=== PATIENT | female | born 1980 | race Caucasian/White ===

== ENCOUNTER → 2020-08-09 | Outpatient (CLI) | payer OTHER, MEDICAID, SELFPAY ==
[2020-08-09 11:26] VITALS: BMI 56.7
--- NOTE | 2020-08-10 18:27 | US_ITS ---
STUDY: ULTRASOUND OF THE FEMALE PELVIS - COMPLETE REASON FOR EXAM: Female, 40 years old. AUB SPOTTING SINCE MAY LMP: 05/19/2020 TECHNIQUE: Transabdominal and Transvaginal TECHNICAL QUALITY: Adequate. COMPARISON: None. FINDINGS: The uterus is anteverted and is in a midline position. The uterus measures 9.8 x 6.0 x 5.0 cm. There is a Nabothian cyst of the cervix. The endometrium measures 13 mm in thickness, and is hyperechoic. There is no demonstrated endometrial mass. There is no demonstrated myometrial mass. I.U.D. - The patient does not have an I.U.D. The right ovary is visualized. The right ovary measures 3.8 x 3.2 x 2.5 cm. There are multiple follicles of the right ovary without a dominant cyst. There is no visualized right adnexal mass or complex lesion. There is normal arterial and normal venous vascularity. The left ovary is visualized. The left ovary measures 3.4 x 2.3 x 1.7 cm. There is no left ovarian cyst or ovarian mass. Simple anechoic adnexal cyst measures 3.0 cm. There is normal arterial and normal venous vascularity. There is no fluid in the cul-de-sac. Visualized urinary bladder is unremarkable. US/Pelvic (Non ) IMPRESSION: 1. No endometrial or myometrial masses. No pelvic free fluid. 2. Simple appearing left adnexal cyst. No pelvic free fluid. Electronically Signed: Keo Norman MD ([place]) at 9:22 EDT , Service support ,
--- NOTE | 2020-08-10 18:37 | US_ITS ---
STUDY: ULTRASOUND OF THE FEMALE PELVIS - COMPLETE REASON FOR EXAM: Female, 40 years old. AUB SPOTTING SINCE MAY LMP: 05/19/2020 TECHNIQUE: Transabdominal and Transvaginal TECHNICAL QUALITY: Adequate. COMPARISON: None. FINDINGS: The uterus is anteverted and is in a midline position. The uterus measures 9.8 x 6.0 x 5.0 cm. There is a Nabothian cyst of the cervix. The endometrium measures 13 mm in thickness, and is hyperechoic. There is no demonstrated endometrial mass. There is no demonstrated myometrial mass. I.U.D. - The patient does not have an I.U.D. The right ovary is visualized. The right ovary measures 3.8 x 3.2 x 2.5 cm. There are multiple follicles of the right ovary without a dominant cyst. There is no visualized right adnexal mass or complex lesion. There is normal arterial and normal venous vascularity. The left ovary is visualized. The left ovary measures 3.4 x 2.3 x 1.7 cm. There is no left ovarian cyst or ovarian mass. Simple anechoic adnexal cyst measures 3.0 cm. There is normal arterial and normal venous vascularity. There is no fluid in the cul-de-sac. Visualized urinary bladder is unremarkable. US/Transvaginal Non- IMPRESSION: 1. No endometrial or myometrial masses. No pelvic free fluid. 2. Simple appearing left adnexal cyst. No pelvic free fluid. Electronically Signed: Keo Norman MD ([place]) at 9:22 EDT , Service support ,
== END | disposition home or self-care (01) ==
PROVIDERS: Referring Provider Obstetrics & Gynecology; Visit Provider Obstetrics & Gynecology
DX: N93.9 Abnormal uterine and vaginal bleeding, unspecified (principal); Z12.4 Encounter for screening for malignant neoplasm of cervix
CPT/HCPCS: 76830; 76856; 87624; 88175; G0145

== ENCOUNTER → 2020-09-09 | Outpatient (CLI) | payer OTHER, MEDICAID, SELFPAY ==
--- NOTE | 2020-09-09 | EMB_PTH ---
PATIENT: GARRETT LEMOS LOC: [facility] U#:[id number] AGE/SX: 40/F ROOM: RE09/09/[address]: Dr. Carol Genao MD : 1980 BED: DIS: 09/09/2020 SPEC #: [id number] RECD: 09/09/20 12:15 STATUS: M[place] MUNIRA #: [id number] SIVAKUMAR: 09/09/20 00:[address]: Carol Genao DEPT: SURGICAL PATHOLOGY RECD BY: Jasmin Kay ENTERED: 09/09/20 13:44 SP TYPE: ENDOM BX/C WIN DR: Micheline [facility] Tissues: Endometrium, NOS Procedures: Surgery Specimen Level IV HEADER OPERATION: Endometrial biopsy PRE-OP DIAGNOSIS: Abnormal uterine bleeding TISSUE SUBMITTED: Endometrial lining MICROSCOPIC DIAGNOSIS Endometrial biopsy: Proliferative endometrium. EVELIN:randall 09/13/20 MICROSCOPIC DESCRIPTION Slides are reviewed. GROSS DESCRIPTION Received is one container labeled with the patient's name and not further designated. The specimen consists of multiple fragments of pink hemorrhagic soft tissue that in aggregate measure 3 x 2.5 x 0.3 cm. The specimen is totally submitted in one cassette. / SJ:randall 09/10/20 TC:4 CPT: 26918
[2020-09-09 11:06] VITALS: BMI 56.6
== END | disposition home or self-care (01) ==
LOC: LABSPEC 12:22
PROVIDERS: Visit Provider Obstetrics & Gynecology
DX: N93.9 Abnormal uterine and vaginal bleeding, unspecified (principal)
CPT/HCPCS: 88305

== ENCOUNTER 2020-10-05 11:12 | Day surgery (SDC) | payer OTHER, MEDICAID, SELFPAY ==
[2020-08-27 11:42] VITALS: BMI 56.5
[2020-09-09 11:06] VITALS: BMI 56.6
--- NOTE | 2020-09-29 10:56 | EKG12_ITS ---
Test Reason : PRE OP Blood Pressure : / mmHG Vent. Rate : 070 BPM Atrial Rate : 070 BPM P-R Int : 154 ms QRS Dur : 088 ms QT Int : 416 ms P-R-T Axes : 037 063 060 degrees QTc Int : 449 ms Normal sinus rhythm Normal ECG Confirmed by TYREL MONTANA, ABRAHAM ([id number]), newspaper photo editor GM LUCERO ([id number]) on 10/01/2020 11:24:54 AM Referred By: Carol Genao Confirmed By:ABRAHAM SARAH MD
[2020-09-29 11:51] LABS: Hematocrit 42.7 % (37-47); Hemoglobin 13.1 g/dL (12.0-15.0); Mean Corp Hgb Conc 30.7 g/dL (32-36); Mean Corpuscular Hgb 27.1 pg (27.0-32.0); Mean Corpuscular Volume 88.2 fL (81-99); Mean Platelet Vol. 9.9 fl (6.2-12.0); Platelet Count 331 K/mm3 (150-450); RBC Distribution Width CV 15.3 % (11.6-14.6); RBC Distribution Width SD 49.4 fl (35.1-43.9); Red Blood Count 4.84 M/mm3 (4.2-5.4); White Blood Count 12.3 K/mm3 (4.4-11.0)
[2020-09-29 12:09] LABS: Magnesium 2.3 mg/dL (1.6-2.6)
[2020-10-05] VITALS (10 sets, daily range): BP systolic 120–146; BP diastolic 65–82; PULSE 68–78; RESP 16–20; TEMP 36.1–36.5; O2SAT 92–97; BMI 57.4
[2020-10-05] MEDS: Scopolamine 1mg/72hr Patch 1 PATCH TD (07:00)
[2020-10-05 11:39] LABS: Internal QC Validated? YES +Cl - CLEAR BKGD
[2020-10-05 11:42] LABS: Pregnancy, Urine Negative Negative
--- NOTE | 2020-10-05 11:48 | PCM.HPOB.BLA ---
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 Is patient in pain?: No Allergies Penicillins Adverse Reaction (Unknown, Verified 09/09/20 11:07) unknown Medications bupropion HCl 150 mg tablet,12 hr sustained-release 150 mg PO DAILY 08/09/20 [History Confirmed 09/09/20] ergocalciferol (vitamin D2) 1,250 mcg (50,000 unit) capsule 1,250 mcg PO QWEEK 08/09/20 [History Confirmed 09/09/20] metformin 500 mg tablet 500 mg PO DAILY 08/09/20 [History Confirmed 09/09/20] norethindrone (contraceptive) 0.35 mg tablet 0.35 mg PO DAILY #28 tab 08/09/20 [Rx Confirmed 09/09/20] polysaccharide iron complex 150 mg iron capsule 150 mg PO DAILY 08/09/20 [History Confirmed 09/09/20] Post menopausal: No Patient : No : No PFSH PFSH Medical History Depression (Acute) Endometriosis (Acute) Iron deficiency anemia (Acute) Hypothyroid (Acute) PCOS (polycystic ovarian syndrome) (Chronic) Surgical History S/P dilation and curettage (Resolved) Family History Grandmother Diabetes Grandfather Diabetes Aunt Diabetes Cervical cancer Uncle Diabetes Other Heart palpitations Social History (Updated 09/09/20 @ 13:[address] 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 Date Name GA/Weeks Outcome Route Bth Weight Infant Gen Labor Lgth Anesthesia Del [facility] Provider FOB Unknown Víctor Unknown [place] HPI EMB : Details: GARRETT LEMOS is a 40 year old who presents for EMB and pre-op visit for TVH, BS, poss BSO, cystoscopy. Denies complaints today. ROS Const Constitutional: Reports system reviewed and no additional complaints, except as docu Eyes Eyes: Reports system reviewed and no additional complaints, except as docu ENT ENT: Reports system reviewed and no additional complaints, except as docu Cardio Card: Reports system reviewed and no additional complaints, except as docu Resp Resp: Reports system reviewed and no additional complaints, except as docu GI GI: Reports system reviewed and no additional complaints, except as docu : Reports system reviewed and no additional complaints, except as docu Musc Musc: Reports system reviewed and no additional complaints, except as docu Skin Skin/Breast: Reports system reviewed and no additional complaints, except as docu Neuro Neuro: Reports system reviewed and no additional complaints, except as docu Psych Psych: Reports system reviewed and no additional complaints, except as docu Exam Const General: cooperative, healthy appearing, comfortable, no acute distress, well developed, well groomed Nutritional Appearance: average body habitus, well nourished Orientation: alert, awake, oriented x3 HENMT Head: normal to inspection, normocephalic, atraumatic Eyes Pupils: PERRL, accommodation normal EOM: EOM intact bilaterally Resp Effort & Inspection: normal respiratory effort, able to speak in complete sentences, symmetric chest movement Cardio Rate: regular rate GI Inspection: normal to inspection, non-distended Palpation: soft, no guarding, no masses, not rigid, nontender General: bladder normal to palpation External Female Exam: normal external appearance, normal appearance of the urethra, no erythema, no tenderness externally, no lesions, No lesion of urethra Urethra: normal appearance of the urethra, no lesions Speculum Exam - Vagina: normal appearance of the vagina, normal vaginal discharge, normal vaginal discharge, not erythematous, no lacerations, no lesions, No vaginal bleeding, no masses, no swelling, nontender Speculum Exam - Cervix: normal appearance of the cervix, no cervical discharge, no lesions, no masses, nontender Bimanual Exam- Vagina & Uterus: bladder normal to palpation, No cervical tenderness OB/External & Speculum: No vaginal bleeding Speculum Exam: no vaginal bleeding Neuro General: alert, awake, oriented x3, CN's II-XI intact bilaterally Cranial Nerves: PERRL, accommodation normal, EOM intact bilaterally Cognition: normal cognition Speech: speech normal Gait: normal gait Psych Appearance: grossly normal, well kempt Mental Status: mental status grossly normal Mood: congruent mood Affect: normal affect Speech and Movement: speech and movement normal Attitude: cooperative Thought Process: normal Thought Content: normal Judgment: judgment good Results POC Urine Office , Urine Negative Last Edit by Pricilla Burch on 09/09/20 11:14 Assessment & Plan 1. Abnormal uterine bleeding (AUB) N93.9 Plan Patient presents for EMB and pre-op visit for TVH, BS, cystoscopy. EMB negative Received medical clearance by PCP All questions answered regarding procedure. Patient still agrees to proceed with above procedure. Reviewed that we will attempt to move tubes, but there is always a chance of having to leave these in place if they were not easily accessible. Also reviewed that if ovaries appeared extremely abnormal, could require removal. Patient plans to go home following procedure. Consent was signed. UPDATE- I have seen the patient and performed any clinically relevant updates to the history and physical exam. Carol Genao MD
--- NOTE | 2020-10-05 11:51 | OP.PCM_ITS ---
Problem List (1) Abnormal uterine bleeding (AUB) Status: Acute Report of Operation Date of Procedure: 10/05/20 Pre-Operative Diagnosis: AUB Post-Operative Diagnosis: Same Surgery/Procedure Performed:: Total vaginal hysterectomy, cystostopy Description of Surgical Findings:: Normal uterus, cervix, tubes, and ovaries. clamp forklift operator: Radha Jacobo Type of Anesthesia:: General Special Medications: Ancef 3g Specimen's removed: Uterus, cervix Estimated Blood Loss (mL): 150 Description of Procedure: Patient was taken to the operating room and was placed under general anesthesia was prepped and draped in normal sterile fashion in the dorsal lithotomy position. Preoperative antibiotics and SCDs and Wynn catheter was placed inside the bladder. Weighted speculum was placed in the vagina and the anterior and posterior lip of the cervix was grasped with 2 Lorenzo clamps and circumferentially injected with dilute vasopressin. A circumferential incision was made with a scalpel and the posterior cul-de-sac was entered into sharply an d a longneck speculum was placed. The anterior cul-de-sac was also dissected down and entered into sharply and the uterosacral ligaments were clamped cut and suture ligated bilaterally followed by the cardinal ligaments which were Clamped cut and suture ligated bilaterally with 0 Vicryl. The uterus serially descended and progressive bites were taken bilaterally up to the level of the utero-ovari an ligament bilaterally which was clamped transected and double ligated with 0 Vicryl suture and 0 Vicryl free tie. Bilateral fallopian tubes and ovaries were well visualized and noted to appear normal. The tubes and ovaries were well out of the operative field and the decision was made to leave the fallopian tubes in place. The pelvic side wall was inspected and all pedicles were hemostatic. Pos terior peritoneum and the vagina were closed with [id number] 0 Vicryl pop offs including the posterior and anterior peritoneum in the reapproximation. Excellent hemostasis was noted. The wynn catheter was removed and cystoscopy was performed and vigorous spill was noted from both ureters. The bladder was free of traumatic injury. Wynn catheter was replaced. All instruments removed from the vagina clear urine was noted at the end of the procedure and counts were correct. - Complications None - Admit VTE Documentation VTE Present on Admission: No VTE Mechan Device Prophylaxis: SCD's VTE Pharm Prophylaxis ordered?: No Multi Select Codes - Urinary/Genital Urinary/Genital CPT Codes: 74501 TVH <250 gr uterus
[2020-10-05] MEDS: Gabapentin 600 MG Tablet PO (11:56)
[2020-10-05] MEDS: Celecoxib 200 MG Capsule 400 MG PO (11:56)
[2020-10-05] MEDS: Acetaminophen 500 MG Tablet 1000 MG PO (11:56)
[2020-10-05] MEDS: Phenazopyridine 95 MG Tablet 190 MG PO (11:56)
[2020-10-05] MEDS: Lactated Ringers 1,000 ML 40 ML IV (11:57)
--- NOTE | 2020-10-05 12:02 | DCINST_ITS ---
Discharge Diet: No Restrictions Discharge Activity: Return to Normal Activity, May Not Drive - while taking narcotic pain medications., May Shower May resume sexual activity in: 6-8 weeks Call your doctor if your incision/area has: Continuous Slow Oozing, Sudden Increased Bleeding, Increased Pain/ Swelling, Increased Redness, Foul Smelling Discharge Call your doctor if you observe: Fever of 101 or Higher, Inability to urinate, Inability to have a bowel movement, Using more than one pad per hour Allergies/Adverse Reactions: Allergies bee venom protein (honey bee) Allergy (Verified 10/05/20 11:07) Swelling Penicillins Adverse Reaction (Unknown, Verified 10/05/20 11:07) unknown Medications to take at Discharge bupropion HCl 150 mg tablet,12 hr sustained-release 150 mg PO BID 08/09/20 ergocalciferol (vitamin D2) 1,250 mcg (50,000 unit) capsule 1,250 mcg PO QWEEK 08/09/20 metformin 500 mg tablet 500 mg PO DAILY 08/09/20 norethindrone (contraceptive) 0.35 mg tablet 0.35 mg PO DAILY #28 tab 08/09/20 polysaccharide iron complex 150 mg iron capsule 150 mg PO DAILY 08/09/20 Ascorbic Acid [Vitamin C] 500 mg PO DAILY 09/27/20 Escitalopram Oxalate [Lexapro] 10 mg PO DAILY 09/27/20 Primary Care Physician: [facility] Micheline Lopez [Primary Care Provider] - Test Results: Test results from this visit will be discussed in further detail at your follow- up appointment, if applicable.
[2020-10-05 12:16] LABS: Bedside Glucose 108 mg/dL (70-110)
--- NOTE | 2020-10-05 13:10 | HYST_PTH ---
PATIENT: GARRETT LEMOS [place] [facility] [id number] AGE/SX: 40/F ROOM: RE10/05/[address]: Dr. Carol Genao MD : 1980 BED: DIS: 10/05/2020 SPEC #: [id number] RECD: 10/06/20 07:38 STATUS: MADISON REAna #: [id number] SIVAKUMAR: 10/05/20 13:[address]: Carol Genao DEPT: SURGICAL PATHOLOGY RECD BY: Jasmin Kay ENTERED: 10/06/20 10:17 SP TYPE: HYSTERECT OTHR DR: Dr. Chaparro Garner MD [facility] Tissues: Uterus, NOS Procedures: Surgery Specimen Level V HEADER OPERATION: ERAS, vaginal hysterectomy, cysto PRE-OP DIAGNOSIS: Abnormal uterine bleeding TISSUE SUBMITTED: Uterus and cervix MICROSCOPIC DIAGNOSIS Uterus and cervix, vaginal hysterectomy: Cervix - chronic inflammation and squamous metaplasia. Endometrium - secretory endometrium. Myometrium - no pathologic diagnosis. SJ:randall 10/07/20 MICROSCOPIC DESCRIPTION Slides are reviewed. GROSS DESCRIPTION Received in fixative is one container labeled with the patient's name and designated uterus. The specimen consists of a uterus and cervix in two fragments measuring in aggregate 11 x 10 x 3.5 cm and weighing 123 gm. The ectocervix is unremarkable. The endocervical canal measures 3.5 cm in length and is grossly unremarkable. The elongated endometrial cavity measures 5 x 2.2 cm. The reddish-pineda endometrium measures up to 0.2 cm in thickness. The myometrium measures 2.6 cm in average thickness and is free of mass lesions. Inspector sections are submitted in six cassettes as follows: 1 - anterior cervix, 2 - posterior cervix, 3 & 4 - anterior uterine wall, 5 & 6 - posterior uterine wall. / AM:randall 10/06/20 TC:5 CPT: 80483
[2020-10-05] MEDS: Vasopressin 20 UNITS/ML Vial (13:33)
[2020-10-05] MEDS: Lactated Ringers 1,000 ML 70 ML IV (16:01)
[2020-10-05] MEDS: HYDROcodone Bitartrate/Apap 5/325 Tablet PO (17:47)
[2020-10-05 19:59] LABS: Absolute Lymphocyte Count 0.97 X10^3/uL (0.83-4.51); Absolute Neutrophil Count 16.5 X10^3/uL (2.0-7.7); Basophil# 0.03 X10^3/uL; Basophil% 0.2 % (0-1); Eosinophil# 0.01 X10^3/uL; Eosinophils% 0.1 % (0-5); Hematocrit 42.4 % (37-47); Hemoglobin 13.3 g/dL (12.0-15.0); Lymphocyte # 0.97 X10^3/ul (4.0); Lymphocyte % 5.5 % (19-41); Mean Corp Hgb Conc 31.4 g/dL (32-36); Mean Corpuscular Hgb 27.8 pg (27.0-32.0); Mean Corpuscular Volume 88.7 fL (81-99); Monocyte# 0.18 X10^3/uL; NRBC Flagged by Analyzer 0 % (0-5); Neutrophil # 16.47 X10^3/uL (2.7-7.7); Neutrophil % 92.6 % (47-70); Platelet Count 312 K/mm3 (150-450); RBC Distribution Width CV 14.7 % (11.6-14.6); RBC Distribution Width SD 48.1 fl (35.1-43.9); Red Blood Count 4.78 M/mm3 (4.2-5.4); White Blood Count 17.8 K/mm3 (4.4-11.0)
== END 2020-10-05 20:20 | disposition home or self-care (01) ==
LOC: SDC 11:13 → AC 11:14
PROVIDERS: Anesthesiology; Referring Provider Obstetrics & Gynecology; Visit Provider Obstetrics & Gynecology
PROC: (CPT 58260; principal; 2020-10-05 12:50)
DX: N87.9 Dysplasia of cervix uteri, unspecified (principal); N72 Inflammatory disease of cervix uteri; D50.9 Iron deficiency anemia, unspecified; F17.200 Nicotine dependence, unspecified, uncomplicated; F32.9 Major depressive disorder, single episode, unspecified; E66.01 Morbid (severe) obesity due to excess calories; Z68.43 Body mass index [BMI] 50.0-59.9, adult; Z20.828 Contact with and (suspected) exposure to other viral communicable diseases; Z79.899 Other long term (current) drug therapy
CPT/HCPCS: 00944; 52000; 58260; 36415; 81025; 82962; 83735; 85025; 85027; 86850; 86900; 86901; 87426; 88307; 93005; C9803; J7120; J2405

== ENCOUNTER → 2020-10-20 | Outpatient (CLI) | payer OTHER, MEDICAID, SELFPAY ==
[2020-10-20 11:57] VITALS: BMI 56.6
== END | disposition home or self-care (01) ==
LOC: LABSPEC 16:42
PROVIDERS: Referring Provider Obstetrics & Gynecology; Visit Provider Obstetrics & Gynecology
DX: N94.9 Unspecified condition associated with female genital organs and menstrual cycle (principal)
CPT/HCPCS: 87070; 87205

== ENCOUNTER → 2020-11-16 | Outpatient (CLI) | payer OTHER, MEDICAID, SELFPAY ==
[2020-11-16 09:41] VITALS: BMI 57.9
== END | disposition home or self-care (01) ==
LOC: LABSPEC 15:10
PROVIDERS: Referring Provider Nurse Practitioner Women's Health; Visit Provider Nurse Practitioner Women's Health
DX: R30.0 Dysuria (principal)
CPT/HCPCS: 87086; 87088

== ENCOUNTER 2021-03-01 09:51 | Emergency (ER) | payer OTHER, MEDICAID, SELFPAY ==
[2020-11-16 09:41] VITALS: BMI 57.9
[2021-03-01 09:52] VITALS: BP 142/109; PULSE 91; RESP 15; TEMP 36.6; O2SAT 97; BMI 59.9
--- NOTE | 2021-03-01 10:14 | CT_ITS ---
STUDY: CT BRAIN WITHOUT CONTRAST REASON FOR EXAM: Female, 40 years old. Headache. Syncope. RADIATION DOSAGE (If Supplied By Facility): CTDIvol = ( 44.99 ) mGy, DLP = ( 779.24 ) mGycm TECHNIQUE: Transaxial CT imaging of the brain was performed without administration of intravenous contrast material. Individualized dose optimization techniques were used for this CT. COMPARISON: No relevant priors. FINDINGS: Normal soft tissue structures. Normal calvarium. Normal size ventricles and extra-axial spaces for the patient''s age. Normal white matter tracts of the cerebral hemispheres. Normal basal ganglia and thalami. Normal brainstem. Normal cerebellum. There is no intracranial hemorrhage. There are no findings of an acute ischemic infarction. Mild degree of mucosal thickening along the posterior aspect of the left maxillary sinus. CT/Brain/Head without Contrast IMPRESSION: Normal unenhanced CT scan of the brain. Electronically Signed: Zach Grullon MD at 11:21 EDT , Service support ,
--- NOTE | 2021-03-01 10:15 | EKG12_ITS ---
Test Reason : SYC Blood Pressure : / mmHG Vent. Rate : 080 BPM Atrial Rate : 080 BPM P-R Int : 160 ms QRS Dur : 090 ms QT Int : 412 ms P-R-T Axes : 036 060 067 degrees QTc Int : 475 ms Normal sinus rhythm Normal ECG Confirmed by ARISTIDES MONTANA, GIBRAN ([id number]), perfect binder operator GM LUCERO ([id number]) on 03/03/2021 9:09:36 AM Referred By: MR Confirmed By:GIBRAN IRVING MD
--- NOTE | 2021-03-01 10:15 | RAD_ITS ---
STUDY: X-RAY CHEST REASON FOR EXAM: Female, 40 years old. Syncope TECHNIQUE: PA and lateral views of the chest. COMPARISON: None. FINDINGS: EKG electrodes are seen. The lungs are clear and expanded. There is no demonstrated pleural abnormality. Normal size heart. Normal mediastinum and janel. Normal visualized pulmonary arteries. Normal visualized aortic arch and descending thoracic aorta. There are mild degenerative changes of the visualized thoracic spine. Normal visualized ribs, clavicles, and shoulders. There is no demonstrated abnormality of the visualized soft tissue structures of the upper abdomen. RAD/Chest PA and Lateral IMPRESSION: Normal x-ray examination of the chest. Electronically Signed: Zach Grullon MD at 11:21 EDT , Service support ,
[2021-03-01 10:27] VITALS: BP 156/81; PULSE 78; RESP 18; O2SAT 96
--- NOTE | 2021-03-01 10:34 | EDS_ITS ---
HPI History of Present Illness Chief Complaint: Syncope Narrative Narrative: Patient presenting for evaluation secondary to syncope. Patient states that on Sunday, 4 days ago she suffered a syncopal episode. She was standing in line, had a coughing episode and then passed out. Friend who is present with her states that she was unconscious for around 30 to 60 seconds denies that there is any sort of seizure-like activity or loss of bowel or bladder continence. Patient reports that she remembers coughing, and then remembers nothing after that. She denies that she had any preceding chest pain. She denies that there was any shortness of breath. Patient does state that she has had a couple of episodes that were rather unprovoked over the course the last month actually a few when she was simply seated and just driving. She denied that there was any preceding nausea abdominal pain or any other provoking factors. Patient denies any cardiovascular history. She denies any history of DVT or PE, she is a smoker no recent travel or surgery. She denies any recent infectious signs or symptoms. She was concerned because after syncopal event on Sunday she has had a persistent mild headache. This is a generalized headache and its not associated with photophobia photophobia visual changes numbness weakness nausea or vomiting. Review of systems otherwise negative. [facility] Medical History Depression Endometriosis Hypothyroid Iron deficiency anemia PCOS (polycystic ovarian syndrome) Home Medications bupropion HCl 150 mg tablet,12 hr sustained-release 150 mg PO BID 08/09/20 [History Last Taken Unknown] ergocalciferol (vitamin D2) 1,250 mcg (50,000 unit) capsule 1,250 mcg PO QWEEK 08/09/20 [History Last Taken Unknown] metformin 500 mg tablet 500 mg PO DAILY 08/09/20 [History Last Taken Unknown] polysaccharide iron complex 150 mg iron capsule 150 mg PO DAILY 08/09/20 [History Last Taken Unknown] ascorbic acid (vitamin C) 500 mg PO DAILY 09/27/20 [History Last Taken Unknown] escitalopram oxalate 10 mg PO DAILY 09/27/20 [History Last Taken Unknown] ibuprofen 800 mg PO Q8H PRN PRN #60 tab 10/05/20 [Rx Last Taken Unknown] apixaban [Eliquis] 5 mg PO BID #74 tab 03/01/21 [Rx Last Taken Unknown] Allergy/AdvReac Type Severity Reaction Status Date / Time bee venom protein (honey bee) Allergy Swelling Verified 11/16/20 09:43 Penicillins AdvReac Unknown unknown Verified 11/16/20 09:43 Family History Grandmother Diabetes Grandfather Diabetes Aunt Diabetes Cervical cancer Uncle Diabetes Other Heart palpitations Surgical History H/O total vaginal hysterectomy S/P dilation and curettage Social History Smoking Status: Current every day smoker alcohol intake: never substance use type: does not use what type of physical activity do you participate in: walking frequency: 3-4 times per week seatbelt use: always do you feel safe at home: Yes additional social history: - Jose Patient does instacart ROS ROS ED Constitutional Constitutional ED: Reports systems reviewed and no addt'l complaints, except as documented Eyes Eyes: Reports systems reviewed and no addt'l complaints, except as documented ENT ENT ED: Reports systems reviewed and no addt'l complaints, except as documented Cardiovascular Cardiovascular: Reports syncope; Denies chest pain or dyspnea Respiratory/Chest Respiratory/Chest: Reports systems reviewed and no addt'l complaints, except as documented Gastrointestinal Gastrointestinal: Reports systems reviewed and no addt'l complaints, except as documented Genitourinary Genitourinary ED: Reports systems reviewed and no addt'l complaints, except as documented Musculoskeletal Musculoskeletal: Reports systems reviewed and no addt'l complaints, except as documented Integumentary Reports systems reviewed and no addt'l complaints, except as documented Neurologic Neurologic: Reports headache(s) Psychiatric Psychiatric: Reports systems reviewed and no addt'l complaints, except as documented Endocrine Endocrinology: Reports systems reviewed and no addt'l complaints, except as documented Hematologic/Lymphatic Hematologic/Lymphatic: Reports systems reviewed and no addt'l complaints, except as documented Allergic/Immunologic Allergic/Immunologic ED: Reports systems reviewed and no addt'l complaints, except as documented EXAM Physical Exam Const Vital Signs: 03/01/21 09:52 03/01/21 10:11 03/01/21 10:27 Temperature 97.8 F Temperature Source Temporal Pulse Rate 91 78 Respiratory Rate 15 18 Respiratory Effort Normal Respiratory Pattern Normal Blood Pressure 142/109 H 156/81 H Blood Pressure Mean 120 106 Pulse Ox 97 96 Oxygen Delivery Method Room Air Room Air 03/01/21 12:03 Temperature Temperature Source Pulse Rate 83 Respiratory Rate 14 Respiratory Effort Respiratory Pattern Blood Pressure 146/71 H Blood Pressure Mean 96 Pulse Ox 96 Oxygen Delivery Method Room Air Positive well nourished, well developed and no apparent distress General Appearance ED: well developed HEENT Reports normocephalic and head/scalp atraumatic Eyes PERRL and EOMs intact bilaterally Eyes Narrative: No evidence of nystagmus Neck full ROM and no JVD Chest Wall inspection of chest normal and palpation of chest normal Resp normal respiratory effort, normal air movement and clear to auscultation [place] aterally Cardio regular rate, regular rhythm, S1 normal heart sound, S2 normal heart sound and no murmurs Peripheral Pulses: pulses 2+ throughout GI normal to inspection, nondistended, normoactive bowel sounds, soft to palpation, non-tender and non-distended Back/Spine normal ROM Extremity normal to inspection, full ROM, no calf tenderness and no pedal edema Neuro oriented x3, CN's II-XII intact bilaterally, moves all extremities, no focal motor deficits and no sensory deficits noted Psych mental status grossly normal Skin no rashes or lesions noted MDM MDM MDM Narrative Medical decision making narrative: Patient presented for evaluation secondary to syncopal episodes. EKG was found to be unremarkable. CBC unremarkable, chemistry and troponin found to be within normal limits. D-dimer was obtained on this patient and was found to be elevated at 0.6. Chest x-ray by my personal review was negative, CT imaging of the brain was found to be negative. CT angiogram of the chest however did demonstrate the patient to have pulmonary emboli in the left upper lung lobe. Patient's P JOHNNY score is in the very low risk category making it appropriate for the patient to be managed as an outpatient with [facility]. I discussed the patient risks and benefits of anticoagulation therapy, she did verbally consent to this. I educated her on signs and symptoms for which to return to the emergency department. I stressed the importance of outpatient follow-up with primary care. Patient voiced understanding of this. Patient was discharged in stable condition. Lab Data Labs: Laboratory Results - last 24 hr 03/01/21 03/01/21 03/01/21 10:30 10:30 10:30 WBC 8.4 RBC 5.01 Hgb 14.0 Hct 44.3 MCV 88.4 MCH 27.9 MCHC 31.6 L RDW Std Deviation 44.4 H RDW Coeff of Demarcus 13.7 Plt Count 285 MPV 9.7 Immature Gran % (Auto) 0.400 Neut % (Auto) 64.9 Lymph % (Auto) 21.0 Boyd % (Auto) 10.0 Eos % (Auto) 3.1 Baso % (Auto) 0.6 Absolute Neuts (auto) 5.5 Absolute Lymphs (auto) 1.77 Nucleated RBC % 0 D-Dimer Quant (PE/DVT) 0.60 H* Sodium 139 Potassium 3.5 Chloride 103 Carbon Dioxide 30.0 Anion Gap 6 BUN 13 Creatinine 0.86 Estim Creat Clear Calc 78.25 Est GFR (MDRD) Af Amer 94 Est GFR (MDRD) Non-Af 78 BUN/Creatinine Ratio 15.1 Glucose 137 H Calcium 8.5 Troponin I < 0.015 Radiography Chest X-Ray - ED: 2 View, Read by ED Physician and Normal Diagnostic Testing: Radiology Impression Brain CT 03/01/21 10:14 IMPRESSION: Normal unenhanced CT scan of the brain. Electronically Signed: Zach Grullon MD at 11:21 EDT , Service support , Chest X-Ray 03/01/21 10:15 IMPRESSION: Normal x-ray examination of the chest. Electronically Signed: Zach Grullon MD at 11:21 EDT , Service support , Chest CTA 03/01/21 11:08 IMPRESSION: Multiple pulmonary emboli in the branches of the upper lobe pulmonary arteries. Gallstones. Electronically Signed: Zach Grullon MD at 11:49 EDT , Service support , EKG Initial EKG: Attestation: I personally reviewed and interpreted this EKG as follows: (Sinus rhythm of [address] segments, normal T waves, normal MS and QTc intervals no evidence of WPW or Brugada morphology, no evidence of acute ischemia or arrhythmia.) Discharge Plan Triage Chief Complaint: Syncope ED Provider: Octavio Saravia Dx/Rx/DC Orders Clinical Impression: Pulmonary embolism Instructions: Pulmonary Embolism Prescriptions: New Eliquis 5 mg tablet 5 mg PO BID Qty: 74 RF: 0 No Action bupropion HCl [Wellbutrin SR] 150 mg tablet sustained-release 12 hr 150 mg PO BID RF: 0 polysaccharide iron complex [Ferrex 150] 150 mg iron capsule 150 mg PO DAILY RF: 0 metformin 500 mg tablet 500 mg PO DAILY RF: 0 ergocalciferol (vitamin D2) [Vitamin D2] 1,250 mcg (50,000 unit) capsule 1,250 mcg PO QWEEK RF: 0 escitalopram oxalate 10 MG tablet 10 mg PO DAILY RF: 0 ascorbic acid (vitamin C) 500 MG capsule 500 mg PO DAILY RF: 0 ibuprofen 800 MG tablet 800 mg PO Q8H PRN PRN (Reason: Pain Score 1-5) Qty: 60 RF: 1 Primary Care Provider: [facility] Micheline Lopez Referrals: [facility] Micheline Lopez [Primary Care Provider] - 3-5 Days Disposition Patient Disposition: Home, self care
[2021-03-01 10:41] LABS: Absolute Lymphocyte Count 1.77 X10^3/uL (0.83-4.51); Absolute Neutrophil Count 5.5 X10^3/uL (2.0-7.7); Basophil# 0.05 X10^3/uL; Basophil% 0.6 % (0-1); Eosinophil# 0.26 X10^3/uL; Eosinophils% 3.1 % (0-5); Hematocrit 44.3 % (37-47); Lymphocyte # 1.77 X10^3/ul (0.83-4.51); Mean Corp Hgb Conc 31.6 g/dL (32-36); Mean Corpuscular Hgb 27.9 pg (27.0-32.0); Mean Corpuscular Volume 88.4 fL (81-99); Mean Platelet Vol. 9.7 fl (6.2-12.0); Monocyte# 0.84 X10^3/uL; NRBC Flagged by Analyzer 0 % (0-5); Neutrophil # 5.47 X10^3/uL (2.7-7.7); Neutrophil % 64.9 % (47-70); Platelet Count 285 K/mm3 (150-450); RBC Distribution Width CV 13.7 % (11.6-14.6); RBC Distribution Width SD 44.4 fl (35.1-43.9); Red Blood Count 5.01 M/mm3 (4.2-5.4); White Blood Count 8.4 K/mm3 (4.4-11.0)
[2021-03-01 10:56] LABS: Anion Gap 6 (5-15); BUN 13 mg/dL (7-18); BUN/Creat Ratio 15.1 RATIO (10-20); Calcium,Total 8.5 mg/dL (8.5-10.1); Chloride 103 mmol/L (98-107); Creatinine, Serum 0.86 mg/dL (0.55-1.02); EST Glomerular Filtration Rate 78 mL/min (>60); Est Glom Filt Rate - Afr Amer 94 mL/min (>60); Estimated Creatinine Clearance 78.25 ml/min; Glucose 137 mg/dL (74-106); Potassium 3.5 mmol/L (3.5-5.1); Sodium Level 139 mmol/L (136-145)
--- NOTE | 2021-03-01 11:08 | CT_ITS ---
STUDY: CTA CHEST REASON FOR EXAM: Female, 40 years old. Syncope, Elevated D-Dimer RADIATION DOSAGE (If Supplied By Facility): CTDIvol = ( 12.66 ) mGy, DLP = ( 567.16 ) mGycm TECHNIQUE: The examination was performed with the intravenous administration of IV 100mL [id number]-370. Post-processing of the angiographic images was performed, with multiplanar reformation and 3D reconstruction. Individualized dose optimization techniques were used for this CT. COMPARISON: None. FINDINGS: Multiple intraluminal filling defects in branches of the upper lobe pulmonary arteries. Normal thoracic aorta and visualized great vessels. There is no demonstrated aortic dissection. Normal heart and pericardium. Normal mediastinum. Normal hilar regions. Normal visualized trachea and bronchi. The lungs are well expanded. Normal pulmonary parenchyma. Normal pleura. Normal chest wall structures. There are degenerative changes of thoracic spine. Gallstones. CT/CTA Chest W/WO Contrast IMPRESSION: Multiple pulmonary emboli in the branches of the upper lobe pulmonary arteries. Gallstones. Electronically Signed: Zach Grullon MD at 11:49 EDT , Service support ,
[2021-03-01 12:03] VITALS: BP 146/71; PULSE 83; RESP 14; O2SAT 96
[2021-03-01] MEDS: HYDROcodone Bitartrate/Apap 5/325 Tablet PO (12:27)
[2021-03-01 12:29] VITALS: BP 157/82; PULSE 84; RESP 16; O2SAT 97
== END 2021-03-01 12:40 | disposition home or self-care (01) ==
PROVIDERS: Emergency Provider Emergency Medicine
DX: I26.99 Other pulmonary embolism without acute cor pulmonale (principal); F17.200 Nicotine dependence, unspecified, uncomplicated; D50.9 Iron deficiency anemia, unspecified
CPT/HCPCS: 70450; 71046; 71275; 80048; 84484; 85025; 85379; 93005; 99285; Q9967; A4216

== ENCOUNTER → 2021-03-07 08:57 | Outpatient (CLI) | payer OTHER, MEDICAID, SELFPAY ==
[2021-03-01 09:52] VITALS: BMI 59.9
--- NOTE | 2021-03-07 09:00 | US_ITS ---
STUDY: ABDOMINAL ULTRASOUND - RIGHT UPPER QUADRANT REASON FOR VISIT: Female, 40 years old DISEASE OF GALLBLADDER TECHNIQUE: Ultrasound evaluation of the right upper quadrant was performed with real-time and static moe-scale imaging. TECHNICAL QUALITY: Limited. Examination limited due to obesity. COMPARISON: Comparison is made with prior CT scan of the thorax dated 03/01/2021. FINDINGS: Liver: The liver is enlarged and measures 19.6 cm. There is increased echogenicity consistent with fatty infiltration. The bile ducts are within normal limits. There is hepatic color flow. The direction of portal flow is hepatopetal. There is no demonstrated mass lesion. Gallbladder: Normal distended gallbladder. The gallbladder wall measures 2 mm. There is a negative sonographic Whalen''s sign. There is no pericholecystic fluid. There is a solitary echogenic gallstone within the gallbladder. This measures 1.8 cm x 1.9 cm. Common Bile Duct (C.B.D.): The common bile duct measures 2.0 mm. Pancreas: Normal size of the head, body and tail of the pancreas. There is normal echogenicity of the pancreas. There is no demonstrated pancreatic mass or cyst. Right Kidney: Normal size of the right kidney. The right kidney measures 10 cm x 6.3 cm x 4.5 cm. Normal renal cortex. The right cortex measures 1.3 cm. There is no demonstrated renal mass or cyst. There is no right hydronephrosis. US/Abdomen Limited IMPRESSION: Mild hepatomegaly and fatty infiltration of the liver. Solitary gallstone. Electronically Signed: Zach Grullon MD at 11:02 EDT , Service support ,
[2021-03-07 11:14] LABS: Erythrocyte Sedimentation Rate 41 mm/hr (0-30)
[2021-03-07 11:52] LABS: AST(SGOT) 26 U/L (15-37); Alanine Aminotransfer ALT/SGPT 35 U/L (13-56); Alkaline Phosphatase 70 U/L (45-117); Iron 215 ug/dL (50-170); Iron Binding Capacity,Total 335 ug/dL (250-450); PERCENT IRON SATURATION 64.2 % (15.0-55.0); T4 Free Direct 0.87 ng/dL (0.76-1.46); Thyroid Stim Hormone (TSH) 1.56 uIU/mL (0.358-3.74)
[2021-03-07 15:23] LABS: Vitamin B12 286 pg/mL (211-911)
[2021-03-08 10:54] LABS: Thyroid Peroxidase AB < 9 IU/mL (0-34)
[2021-03-09 16:24] LABS: Vitamin D 1,25-Dihydroxy 58.9 pg/mL (19.9-79.3)
== END ==
LOC: US 09:54 → LAB 09:54
PROVIDERS: Referring Provider Nurse Practitioner Adult Health; Visit Provider Nurse Practitioner Adult Health
DX: K82.9 Disease of gallbladder, unspecified (principal); G44.89 Other headache syndrome; E03.9 Hypothyroidism, unspecified
CPT/HCPCS: 36415; 76705; 82607; 82652; 83540; 83550; 84075; 84439; 84443; 84450; 84460; 85652; 86376

== ENCOUNTER 2022-02-15 16:40 | Emergency (ER) | payer OTHER, MEDICAID, SELFPAY ==
[2022-02-15 16:41] VITALS: BP 104/80; PULSE 94; RESP 14; TEMP 36.5; O2SAT 99; BMI 57.2
--- NOTE | 2022-02-15 17:24 | CT_ITS ---
STUDY: CT ABDOMEN AND PELVIS WITHOUT CONTRAST REASON FOR EXAM: Female, 41 years old. Abd pain RADIATION DOSAGE (If Supplied By Facility): CTDIvol = ( 22.71 ) mGy, DLP = ( 1223.80 ) mGycm TECHNIQUE: Transaxial images were obtained from the dome of the diaphragm to the symphysis pubis without oral contrast, and without intravenous contrast. Sagittal and coronal images were reconstructed. Individualized dose optimization techniques were used for this CT. COMPARISON: None. FINDINGS: The visualized lung bases are unremarkable. The visualized portions of the heart are within normal limits. There is hepatomegaly with diffuse hepatic enlargement. There is decreased attenuation of the liver consistent with steatosis. There is a solitary gallstone. There is mild splenomegaly. Normal pancreas. Normal bilateral adrenal glands. Normal right kidney. Normal left kidney. Normal visualized stomach. Normal small intestine. Normal colon. The appendix is visualized and appears normal. Normal abdominal aorta. Normal inferior vena cava. Normal retroperitoneum. Normal urinary bladder. There is absence of the uterus consistent with a prior hysterectomy. There is no free fluid in the abdomen or pelvis. Normal abdominal wall. There is degenerative change of the spine. CT/Abdomen/Pelvis without Cont IMPRESSION: Gallstone. Hepatosplenomegaly. Fatty infiltration of the liver. No biliary dilatation. Electronically Signed: Parish Gee MD at 18:39 EDT Reading Location ID and State: [facility] / [place] , Service support ,
[2022-02-15 17:54] LABS: Mucous, Urine 0 SEEN /hpf (<or=2+)
[2022-02-15 17:55] LABS: Absolute Lymphocyte Count 1.96 X10^3/uL (0.83-4.51); Absolute Neutrophil Count 9.8 X10^3/uL (2.0-7.7); Basophil# 0.04 X10^3/uL; Basophil% 0.3 % (0-1); Eosinophils% 2.3 % (0-5); Hemoglobin 15.8 g/dL (12.0-15.0); Lymphocyte # 1.96 X10^3/ul (0.83-4.51); Lymphocyte % 15.1 % (19-41); Mean Corp Hgb Conc 32.9 g/dL (32-36); Mean Corpuscular Hgb 29.6 pg (27.0-32.0); Mean Corpuscular Volume 90.1 fL (81-99); Mean Platelet Vol. 10.8 fl (6.2-12.0); Monocyte# 0.86 X10^3/uL; Monocyte% 6.6 % (0-10); NRBC Flagged by Analyzer 0 % (0-5); Neutrophil # 9.76 X10^3/uL (2.7-7.7); Neutrophil % 75.1 % (47-70); Platelet Count 276 K/mm3 (150-450); RBC Distribution Width CV 12.4 % (11.6-14.6); RBC Distribution Width SD 40.7 fl (35.1-43.9); Red Blood Count 5.33 M/mm3 (4.2-5.4)
[2022-02-15] MEDS: Ketorolac 30 MG/ML Syringe IV (17:55)
[2022-02-15] MEDS: 0.9% Normal Saline 1,000 ML 150 ML IV (17:55)
[2022-02-15] MEDS: Ondansetron 4 MG/2 ML Vial IV (17:55)
[2022-02-15 18:12] LABS: Color, Urine Yellow (Yellow); Glucose, Dipstick Normal (Normal); Ketone-Dipstick 15 mg/dl (Negative); Leukocyte Esterase-Dipstick 25 /ul (Negative); Nitrite-Dipstick Negative (Negative); Occult Blood-Urine Negative /ul (Negative); Protein-Dipstick 30 mg/dl (Negative); Urine Bilirubin Dipstick Negative (Negative); Urine Clarity Sl. Cloudy (Clear); Urine Urobilinogen 1 mg/dl (Normal)
[2022-02-15 18:14] LABS: AST(SGOT) 28 U/L (15-37); Alanine Aminotransfer ALT/SGPT 48 U/L (13-56); Albumin, Serum 3.2 g/dL (3.2-5.0); Alkaline Phosphatase 74 U/L (45-117); Anion Gap 6 (5-15); BUN 7 mg/dL (7-18); BUN/Creat Ratio 8.6 RATIO (10-20); Calcium,Total 9.1 mg/dL (8.5-10.1); Chloride 105 mmol/L (98-107); Creatinine, Serum 0.81 mg/dL (0.55-1.02); EST Glomerular Filtration Rate 82 mL/min (>60); Est Glom Filt Rate - Afr Amer 100 mL/min (>60); Estimated Creatinine Clearance 82.25 ml/min; Globulin 3.8 g/dL (2.2-4.2); Glucose 139 mg/dL (74-106); Lipase 111 U/L (73-393); Potassium 3.6 mmol/L (3.5-5.1); Sodium Level 138 mmol/L (136-145)
[2022-02-15 18:24] LABS: Bacteria 2+ /hpf (None Seen); Red Blood Cells-Urine 0-5 SEEN /hpf (0-5); Squamous Epithelial Cells - UA 5-10 SEEN /hpf (5-10); White Blood Cells 0-5 SEEN /hpf (0-5)
--- NOTE | 2022-02-15 19:15 | EX.ED.DYSGE1 ---
HPI History of Present Illness Chief Complaint: Abd Pain Informant: patient Onset/Context/Timing Onset: Weeks Context: Gradual Onset Timing: Waxes and wanes Current Severity: Moderate Maximum Severity: Moderate Narrative Narrative: Patient presents secondary to lower abdominal pain along with vomiting and diarrhea. She recently started Ozempic. 2 weeks ago her dose was increased. She developed abdominal cramping with occasional vomiting and diarrhea at that time. She tried to give it time but noted that today her symptoms to be significantly worse. She called her doctor's office who recommended she come to the emergency room. Patient denies fever or chills. No urinary symptoms. [facility] Medical History Depression Endometriosis Hypothyroid Iron deficiency anemia PCOS (polycystic ovarian syndrome) Home Medications ergocalciferol (vitamin D2) 1,250 mcg (50,000 unit) capsule 1,250 mcg PO QWEEK 08/09/20 [History Last Taken Unknown] metformin 500 mg tablet 500 mg PO DAILY 08/09/20 [History Last Taken Unknown] polysaccharide iron complex 150 mg iron capsule 150 mg PO DAILY 08/09/20 [History Last Taken Unknown] escitalopram oxalate 10 mg PO DAILY 09/27/20 [History Last Taken Unknown] ibuprofen 800 mg PO Q8H PRN PRN #60 tab 10/05/20 [Rx Last Taken Unknown] Allergy/AdvReac Type Severity Reaction Status Date / Time bee venom protein (honey bee) Allergy Swelling Verified 02/15/22 16:43 Penicillins AdvReac Unknown unknown Verified 02/15/22 16:43 Family History Grandmother Diabetes Grandfather Diabetes Aunt Diabetes Cervical cancer Uncle Diabetes Other Heart palpitations Surgical History H/O total vaginal hysterectomy S/P dilation and curettage Social History Smoking Status: Current every day smoker tobacco type: cigarettes alcohol intake: never substance use type: does not use what type of physical activity do you participate in: walking frequency: 3-4 times per week seatbelt use: always do you feel safe at home: Yes additional social history: - Jose Patient does instacart ROS ROS ED Constitutional Constitutional ED: Denies chills or fever(s) Eyes Eyes: Denies change in vision ENT ENT ED: Denies sore throat Cardiovascular Cardiovascular: Denies chest pain Respiratory/Chest Respiratory/Chest: Denies cough or dyspnea Gastrointestinal Gastrointestinal: Reports abdominal pain, diarrhea, nausea and vomiting Genitourinary Genitourinary ED: Denies dysuria Musculoskeletal Musculoskeletal: Reports back pain Integumentary Denies rash Neurologic Neurologic: Denies headache(s) or weakness Allergic/Immunologic Allergic/Immunologic ED: Denies urticaria EXAM Physical Exam Const Vital Signs: 02/15/22 16:41 Temperature 97.7 F L Temperature Source Temporal Pulse Rate 94 Respiratory Rate 14 Blood Pressure 104/80 Blood Pressure Mean 88 Pulse Ox 99 Oxygen Delivery Method Room Air Positive well nourished and well developed General Appearance ED: well developed HEENT Reports normocephalic and head/scalp atraumatic Eyes PERRL and EOMs intact bilaterally Neck supple Chest Wall inspection of chest normal and palpation of chest normal Resp normal respiratory effort and clear to auscultation bilaterally Cardio regular rate and regular rhythm GI Palpation: soft and tender other (Mild lower abdominal tenderness palpation. No guarding or rebound. Active bowel sounds noted.) Back/Spine no CVA tenderness Extremity normal to inspection Neuro oriented x3 and no sensory deficits noted Sensorium / Orientation: alert Motor Exam: strength 5/5 throughout Psych mental status grossly normal Skin no rashes or lesions noted MDM MDM MDM Narrative Medical decision making narrative: CBC and chemistry studies obtained. Urinalysis ordered. CT flank obtained. Patient given Toradol, Zofran, IV fluids. Lab Data Attestation: I reviewed the patient's lab results. Labs: Laboratory Results - last 24 hr 02/15/22 02/15/22 02/15/22 17:30 17:30 17:48 WBC 13.0 H RBC 5.33 Hgb 15.8 H Hct 48.0 H MCV 90.1 MCH 29.6 MCHC 32.9 RDW Std Deviation 40.7 RDW Coeff of Demarcus 12.4 Plt Count 276 MPV 10.8 Immature Gran % (Auto) 0.600 Neut % (Auto) 75.1 H Lymph % (Auto) 15.1 L [place] % (Auto) 6.6 Eos % (Auto) 2.3 Baso % (Auto) 0.3 Absolute Neuts (auto) 9.8 H Absolute Lymphs (auto) 1.96 Nucleated RBC % 0 Sodium 138 Potassium 3.6 Chloride 105 Carbon Dioxide 27.0 Anion Gap 6 BUN 7 Creatinine 0.81 Estim Creat Clear Calc 82.25 Est GFR (MDRD) Af Amer 100 Est GFR (MDRD) Non-Af 82 BUN/Creatinine Ratio 8.6 L Glucose 139 H Calcium 9.1 Total Bilirubin 0.30 Direct Bilirubin 0.10 AST 28 ALT 48 Alkaline Phosphatase 74 Total Protein 7.0 Albumin 3.2 Globulin 3.8 Lipase 111 Urine Color Yellow Urine Clarity Sl. Cloudy Urine pH 6.0 Ur Specific [place] 1.020 Urine Protein 30 H Urine Glucose (UA) Normal Urine Ketones 15 H Urine Occult Blood Negative Urine Nitrite Negative Urine Bilirubin Negative Urine Urobilinogen 1 H Ur Leukocyte Esterase 25 H Urine RBC 0-5 SEEN Urine WBC 0-5 SEEN Ur Squamous Epith Cells 5-10 SEEN Urine Bacteria 2+ Urine Mucus 0 SEEN Radiography Diagnostic Testing: Clinical Impression(s) from Imaging Studies Abdomen/Pelvis CT 02/15/22 17:24 IMPRESSION: Gallstone. Hepatosplenomegaly. Fatty infiltration of the liver. No biliary dilatation. Electronically Signed: Parish Gee MD at 18:39 EDT Reading Location ID and State: [facility] / [place] , Service support , Treatment and Re-Evaluation Narrative: Patient's white count mildly elevated at 13. Hemoglobin concentrated at 15.8. Chemistry studies and LFTs normal. Urinalysis shows 0-5 white cells with 5-[address] scan reveals a gallstone but no biliary dilatation. On repeat evaluation patient resting more comfortably. We discussed bumping her Ozempic dose back down to the previous value and calling her PCP for further instructions on medication dosing. She is comfortable with this plan. Discharge Plan Triage Chief Complaint: Abd Pain ED Provider: Kathleen Kam Dx/Rx/DC Orders Clinical Impression: Abdominal pain, Medication adverse effect Instructions: ED Abdominal Pain Unkn Cause Fem, ED Drug Reaction, Other Prescriptions: No Action polysaccharide iron complex [Ferrex 150] 150 mg iron capsule 150 mg PO DAILY RF: 0 metformin 500 mg tablet 500 mg PO DAILY RF: 0 ergocalciferol (vitamin D2) [Vitamin D2] 1,250 mcg (50,000 unit) capsule 1,250 mcg PO QWEEK RF: 0 escitalopram oxalate 10 MG tablet 10 mg PO DAILY RF: 0 ibuprofen 800 MG tablet 800 mg PO Q8H PRN PRN (Reason: Pain Score 1-5) Qty: 60 RF: 1 Primary Care Provider: Johanna Cha Referrals: Johanna Cha DO [Primary Care Provider] - 3-5 Days Disposition Disposition: Home, Self Care Discharge Date/Time: 02/15/22 19:36
== END 2022-02-15 19:36 | disposition home or self-care (01) ==
PROVIDERS: Emergency Provider Emergency Medicine; PCP Family Medicine; Visit Provider Emergency Medicine
DX: R10.9 Unspecified abdominal pain (principal); R19.7 Diarrhea, unspecified; T50.905A Adverse effect of unspecified drugs, medicaments and biological substances, initial encounter; R11.10 Vomiting, unspecified; E28.2 Polycystic ovarian syndrome; D50.9 Iron deficiency anemia, unspecified; F32.A Depression, unspecified; Z79.899 Other long term (current) drug therapy; Z79.84 Long term (current) use of oral hypoglycemic drugs; F17.210 Nicotine dependence, cigarettes, uncomplicated
CPT/HCPCS: 74176; 80048; 80076; 81001; 83690; 85025; 96361; 96374; 96375; 99283; J7030; J2405